=== PATIENT | female | born 1985 | race Caucasian/White ===

== ENCOUNTER 2017-03-22 06:57 | Emergency (ER) | payer OTHER ==
[2017-03-22] MEDS ORDERED: ONDANSETRON HCL 4 MG/2 ML VIAL ONE (07:35)
[2017-03-22 07:38] LABS: BLOOD UREA NITROGEN 17 mg/dL (7-17); CALCIUM 9.2 mg/dL (8.4-10.2); CHLORIDE 104 mmol/L (98-107); CREATININE 0.7 mg/dL (0.5-1.0); EST GLOMERULAR FILTRATION RATE > 60 mL/min; GLUCOSE 125 mg/dL (70-100); POTASSIUM 3.9 mmol/L (3.5-5.1); SODIUM 140 mmol/L (137-145)
[2017-03-22 07:53] LABS: HEMOGLOBIN 14.9 g/dL (12.0-16.0); MEAN CELL VOLUME 82.1 fL (80.0-100.0); MEAN CORPUS. HGB CONCENTRATION 33.8 g/dL (32.0-36.0); MEAN CORPUSCULAR HEMOGLOBIN 27.8 pg (29.0-35.0); MEAN PLATELET VOLUME 7.6 fL (7.4-10.4); PLATELET COUNT 439 X 10^3uL (130-440); RED BLOOD COUNT 5.37 X 10^6uL (4.20-6.10); RED CELL DISTRIBUTION WIDTH 13.1 % (11.5-14.5); WHITE BLOOD COUNT 14.4 X 10^3uL (3.9-10.7)
[2017-03-22 07:54] LABS: BAND% (Manual) 11 % (0.0-1.0); LYMPHOCYTE % (Manual) 8 % (20.0-40.0); MONOCYTE % (Manual) 3 % (2.0-10.0); NEUTROPHIL % (Manual) 78 % (54.0-75.0); PLATELET ESTIMATE ADEQUATE
[2017-03-22 09:01] LABS: URINE MUCUS NONE SEEN (Up to 25%)
[2017-03-22 09:08] LABS: URINE APPEARANCE CLOUDY; URINE BILIRUBIN NEGATIVE (NEGATIVE); URINE BLOOD NEGATIVE (NEGATIVE); URINE COLOR YELLOW; URINE GLUCOSE NORMAL (NEGATIVE); URINE KETONE 10mg/dL (1+) (NEGATIVE); URINE NITRITE NEGATIVE (NEGATIVE); URINE PROTEIN NEGATIVE (NEG - TRACE); URINE RBC 0-5/hpf (0-5/hpf); URINE SPECIFIC GRAVITY 1.015 (0.001-1.035); URINE UROBILINOGEN NORMAL (NEG-1mg/dL); URINE WBC 0-4/hpf (0-4/hpf)
[2017-03-22 09:09] LABS: URINE BACTERIA <10 ORGANISMS/hpf (<10/hpf)
[2017-03-22 09:12] LABS: URINE LEUKOCYTE ESTERASE 25 WBC/uL (1+) (NEGATIVE)
--- NOTE | 2017-03-22 09:58 | ER PHYSICIAN DOCUMENTATION ---
Physician Documentation [facility] Name:Anette Shen Age:31 yrs Sex:Female :1985 Arrival Date:03/22/2017 Time:06:57 Bed3 Private MD: Jose Alfredo Jay Disposition: 03/22/17 09:09 Discharged to Home/Self Care. Impression: Vomiting - Dehydration, Diarrhea. - Condition is Good. - Discharge Instructions: VOMITING (4y-Adult). - Prescriptions for Zofran 4 mg Oral Tablet - take 1-2 tablet by ORAL route every 4-6 hours As needed; 10 tablet. - Medical Reconciliation form form. - Follow up: Private Physician; When: As needed; Reason: Continuance of care. - Problem is new. - Symptoms have improved. HPI: 03/22 10:39 This 31 yrs old Female presents to ER via Walk In with complaints of jm Nausea/Vomiting/Diarrhea. 10:39 The patient presents to the emergency department with nausea, with vomiting, with jm diarrhea, without any complaints of abdominal pain. Onset: The symptom(s)/episode began/occurred last night. Possible causes: unknown. The symptoms are alleviated by nothing. Associated signs and symptoms: Pertinent negatives: abdominal pain, fever. Historical: - Allergies: No known drug Allergies; - PMHx: FACTOR 5; - Tetanus: < 10 years. - Ebola Screening: : No symptoms or risks identified at this time. . - Immunization history: Flu Vaccine < 1 year. - Social history: Smoking status: Patient states was never smoker of tobacco. ROS: 10:39 Constitutional: Negative for fatigue, fever, malaise. jm 10:39 Cardiovascular: Negative for chest pain. 10:39 Respiratory: Negative for cough, dyspnea on exertion. 10:39 Abdomen/GI: Positive for nausea, vomiting, Negative for abdominal pain. Exam: 10:39 Constitutional: The patient appears alert, awake, comfortable. jm 10:39 ENT: Mouth: Oral mucosa: dry, Dental exam: normal. 10:39 Cardiovascular: Rate: tachycardic, Rhythm: regular. 10:39 Respiratory: Respirations: normal, Breath sounds: are normal. 10:39 Abdomen/GI: Bowel sounds: normal, Palpation: abdomen is soft and non-tender. Vital Signs: 07:09 BP 121 / 80; Pulse 105; Resp 16; Temp 97.6; Pulse Ox 96% ; Weight 83.91 kg; Height 5 jt ft. 4 in. (162.56 cm); Pain 0/10; 07:53 BP 144 / 74 (auto/); cb 07:57 Pulse Ox 99% ; cb 08:16 BP 139 / 80 (auto/); cb 08:22 Pulse Ox 96% ; cb 08:30 BP 120 / 67 (auto/); cb 08:32 Pulse Ox 97% ; cb 09:00 BP 137 / 80; Pulse 89; Pulse Ox 98% on R/A; cb 07:09 Body Mass Index 31.75 (83.91 kg, 162.56 cm) jt MDM: 07:04 Patient medically screened. 10:42 Differential diagnosis: viral gastroenteritis, gastroenteritis. Data reviewed: vital jm signs, nurses notes, and as a result, I will discharge patient. Counseling: I had a detailed discussion with the patient and/or guardian regarding: the historical points, exam findings, and any diagnostic results supporting the discharge/admit diagnosis, lab results, the need for outpatient follow up, with the patient's primary care provider. Response to treatment: the patient's symptoms have markedly improved after treatment. 03/22 07:40 Order name: BASIC METABOLIC PANEL; Complete Time: 08:23 EDMI 03/22 07:54 Order name: CBC W/ MANUAL DIFFERENTIAL; Complete Time: 08:23 EDMI 03/22 09:10 Order name: UA W/ MICRO -CULTURE IF IND EDMI 03/22 07:10 Order name: Iv Saline Lock; Complete Time: 10:21 Dispensed Medications: 07:41 Drug: NS 0.9% 1000 ml; Volume: 1000 ml; Route: IV; Rate: bolus; Infused Over: 45 hrs; mk4 Site: left antecubital; Delivery: [place] Tubing; 07:50 Follow up: IV Status: Infusion continued; IV Intake: 1000ml cb 07:42 Drug: Zofran 4 mg; Route: IVP; Rate: 4 bolus; Infused Over: 2 mins; Site: left mk4 antecubital; 07:43 Follow up: Response: No adverse reaction; Nausea is decreased 4 07:55 Drug: NS 0.9% 1000 ml; Route: IV; Rate: bolus; Site: left antecubital; cb 09:20 Follow up: IV Status: Completed infusion; IV Intake: 1000ml cb 08:00 Drug: Phenergan 12.5 mg; Route: IVP; Site: left antecubital; cb 10:19 Follow up: Response: Nausea is decreased cb Point of Care Testing: Urine Dip: 08:47 pH: 7; ; Specific [place]: 1.015; Ketones: Small; Glucose: Negative; Protein: Negative; jt Leukocytes: Positive; Nitrite: Negative ; Blood: Negative; Bilirubin: Negative ; Urobilinogen: Normal Signatures: Kari Roque, Jose Alfredo Escalante RN, cb, MD MD jm King, Melody mk4
--- NOTE | 2017-03-22 09:58 | ER NURSING DOCUMENTATION ---
Nurse's Notes [facility] Name:Anette Shen Age:31 yrs Sex:Female :1985 Arrival Date:03/22/2017 Time:06:57 Bed3 Private MD: Diagnosis:Vomiting - Dehydration;Diarrhea Presentation: 03/22 07:38 Presenting complaint: Patient states: N/V/D. Transition of care: Home. [facility] 07:38 Method Of Arrival: Walk In [facility] 07:38 Acuity: JOSE DAVID 3 4 Triage Assessment: 07:40 General: Appears in no apparent distress, Behavior is cooperative. Pain: Denies pain. mk4 EENT: No deficits noted. Neuro: No deficits noted. Cardiovascular: Chest pain is denied. Respiratory: No deficits noted. Airway is patent Respiratory effort is even, unlabored, Respiratory pattern is regular, symmetrical. GI: Abdomen is non- distended Pt is actively vomiting Dry heaves. 07:40 GI: Reports diarrhea, nausea, vomiting. cb Historical: - Allergies: No known drug Allergies; - PMHx: FACTOR 5; - Tetanus: < 10 years. - Ebola Screening: : No symptoms or risks identified at this time. . - Immunization history: Flu Vaccine < 1 year. - Social history: Smoking status: Patient states was never smoker of tobacco. Screenin:43 Infectious Disease Risk None. Abuse screen: Denies injuries from another. Nutritional 4 screening: No deficits noted. Assessment: 07:43 See Triage Assessment done by same RN. 4 Vital Signs: 07:09 BP 121 / 80; Pulse 105; Resp 16; Temp 97.6; Pulse Ox 96% ; Weight 83.91 kg; Height 5 jt ft. 4 in. (162.56 cm); Pain 0/10; 07:53 BP 144 / 74 (auto/); cb 07:57 Pulse Ox 99% ; cb 08:16 BP 139 / 80 (auto/); cb 08:22 Pulse Ox 96% ; cb 08:30 BP 120 / 67 (auto/); cb 08:32 Pulse Ox 97% ; cb 09:00 BP 137 / 80; Pulse 89; Pulse Ox 98% on R/A; cb 07:09 Body Mass Index 31.75 (83.91 kg, 162.56 cm) t ED Course: 07:00 Patient arrived in ED. jt 07:09 Jose Alfredo Marquez MD is Attending Physician. jm 07:25 Inserted peripheral IV: saline lock: 20 gauge in left antecubital area and blood jt collected. 07:38 Ara Davies is Primary Nurse. mk4 07:40 Triage completed. mk4 07:42 Arm band placed on Bed in low position Call Light in Reach Gowned Side rails up x2. mk4 Family accompanied patient. Labs ordered per protocol. Drawn by ED staff. 07:43 Valuables Remains with patient. Pulse Ox - RN Monitoring Only NIBP On - RN Monitoring mk4 Only. Door closed. Noise minimized. Warm blanket given. Pillow given. 08:08 Urine collected. Clean catch specimen. cb 08:08 Assisted to bathroom. cb Administered Medications: 07:41 Drug: NS 0.9% 1000 ml; Volume: 1000 ml; Route: IV; Rate: bolus; Infused Over: 45 hrs; mk4 Site: left antecubital; Delivery: [place] Tubing; 07:50 Follow up: IV Status: Infusion continued; IV Intake: 1000ml cb 07:42 Drug: Zofran 4 mg; Route: IVP; Rate: 4 bolus; Infused Over: 2 mins; Site: left 4 antecubital; 07:43 Follow up: Response: No adverse reaction; Nausea is decreased mk4 07:55 Drug: NS 0.9% 1000 ml; Route: IV; Rate: bolus; Site: left antecubital; cb 09:20 Follow up: IV Status: Completed infusion; IV Intake: 1000ml cb 08:00 Drug: Phenergan 12.5 mg; Route: IVP; Site: left antecubital; cb 10:19 Follow up: Response: Nausea is decreased cb Point of Care Testing: Urine Dip: 08:47 pH: 7; ; Specific [place]: 1.015; Ketones: Small; Glucose: Negative; Protein: Negative; jt Leukocytes: Positive; Nitrite: Negative ; Blood: Negative; Bilirubin: Negative ; Urobilinogen: Normal Intake: 07:50 IV: 1000ml; Total: 1000ml. cb 09:20 IV: 1000ml; Total: 2000ml. cb Outcome: 09:09 Discharge ordered by . jm 09:20 Discharged to home ambulatory, with friend. cb 09:20 Condition: stable 09:20 Discharge instructions given to patient, Instructed on discharge instructions, follow up and referral plans. Demonstrated understanding of instructions, Prescriptions given X 1. 09:20 IV D/Shahbaz cb 09:57 Patient left the ED. cb Signatures: Kari Roque, WALDO RN Jose Alfredo Shea MD MD jm King, Melody mk4 Tennant, Joanne jt
== END 2017-03-22 09:58 | disposition home or self-care (01) ==
LOC: ER 06:57
DX: E86.0 Dehydration (principal); R11.2 Nausea with vomiting, unspecified; R19.7 Diarrhea, unspecified
CPT/HCPCS: 80048; 81001; 85007; 85027; 96361; 96374; 96375; 99284; J2405; J2550